=== PATIENT | male | born 1970 | race Caucasian/White ===

== ENCOUNTER 2019-01-11 17:33 | Emergency (ER) | payer OTHER ==
[2019-01-11] MEDS ORDERED: Bacitracin Oint 1 GM U/D Packet TOP ONE (17:58)
--- NOTE | 2019-01-11 17:58 | EDM.PDOC ---
ED HPI GENERAL MEDICAL PROBLEM - General Chief Complaint: Skin Complaint Stated Complaint: FISH HOOK Time Seen by Provider: 01/11/19 17:45 Source of Information: Reports: Patient History Limitations: Reports: No Limitations - History of Present Illness INITIAL COMMENTS - FREE TEXT/NARRATIVE: Patient arrives here with fish hook in left second and third digits, dorsal aspect. DT up to date. Onset: Today, Sudden - Related Data Allergies Allergy/AdvReac Type Severity Reaction Status Date / Time No Known Allergies Allergy Verified 01/11/19 17:51 Past Medical History Cardiovascular History: Reports: Hypertension Social & Family History - Tobacco Use Smoking Status *Q: Unknown Ever Smoked ED ROS GENERAL - Review of Systems Review Of Systems: ROS reveals no pertinent complaints other than HPI. ED EXAM, SKIN/RASH Exam: See Below Exam Limited By: No Limitations General Appearance: Alert, WD/WN, No Apparent Distress Respiratory/Chest: No Respiratory Distress Cardiovascular: Regular Rate, Rhythm Extremities: Normal Inspection Neurological: Alert, Oriented Psychiatric: Normal Affect, Normal Mood Skin: Warm, Dry, Intact, Other (fish hook to second and third digts of left hand , dorsal aspect) Lymphatic: No Adenopathy Course - Vital Signs Last Recorded V/S: Last Vital Signs Temp 36.8 C 01/11/19 17:51 Pulse 90 01/11/19 17:51 Resp 16 01/11/19 17:51 BP 141/91 H 01/11/19 17:51 Pulse Ox 96 01/11/19 17:51 Fish hooks to left 2nd and 3rd digits, removed, patient tolerated well, washed well after removal. Bacitracin and dressing placed. Ibuprofen/Tylenol as needed, wound care discussed, reasons to return discussed, patient agreeable and discharged in stable condition. - Orders/Labs/Meds Orders: Active Orders 24 hr Category Date Time Status Bacitracin [Bacitracin Oint 1 GM] Med 01/11/19 17:58 Once 1 dose TOP ONETIME ONE Medication Orders Bacitracin (Bacitracin Oint 1 Gm) 1 dose TOP ONETIME ONE Stop: 01/11/19 17:59 Meds: Medications Generic Name Dose Route Start Last Admin Trade Name Freq PRN Reason Stop Dose Admin Bacitracin 1 dose 01/11/19 17:58 Bacitracin Oint 1 Gm TOP 01/11/19 17:59 ONETIME ONE Discontinued Medications Generic Name Dose Route Start Last Admin Trade Name Freq PRN Reason Stop Dose Admin Lidocaine HCl 5 ml 01/11/19 17:45 01/11/19 17:57 Xylocaine-Mpf 1% INJECT 01/11/19 17:46 5 ml ONETIME ONE Administration Departure - Departure Time of Disposition: 18:15 Disposition: Home, Self-Care 01 Clinical Impression: Fish hook injury of finger of left hand Qualifiers: Encounter type: initial encounter Qualified Code(s): S69.92XA - Unspecified injury of left wrist, hand and finger(s), initial encounter - Discharge Information Instructions: Hand or Foot Foreign Body, Adult Referrals: PCP,None [Primary Care Provider] - Forms: ED Department Discharge Additional Instructions: Tylenol or Ibuprofen as needed for pain Bacitracin twice daily for 3 days Keep clean and dry as much as possible I hope you have a Happy Birthday the rest of the day!!! - My Orders Last 24 Hours: My Active Orders 01/11/19 17:58 Bacitracin [Bacitracin Oint 1 GM] 1 dose TOP ONETIME ONE - Assessment/Plan Last 24 Hours: My Active Orders 01/11/19 17:58 Bacitracin [Bacitracin Oint 1 GM] 1 dose TOP ONETIME ONE
== END 2019-01-11 18:04 | disposition home or self-care (01) ==
LOC: JP.ED 17:33
DX: S60.451A Superficial foreign body of left index finger, initial encounter (principal); S60.453A Superficial foreign body of left middle finger, initial encounter; I10 Essential (primary) hypertension; W45.8XXA Other foreign body or object entering through skin, initial encounter
CPT/HCPCS: 99282; J2001

== ENCOUNTER 2020-09-05 14:23 | Emergency (ER) | payer OTHER ==
[2020-09-05] MEDS ORDERED: Lidocaine 2% 20 ML MDV SUBCUT ONE (14:47)
[2020-09-05] MEDS ORDERED: Bacitracin Oint 1 GM U/D Packet TOP ONE (14:48)
--- NOTE | 2020-09-05 14:57 | EDM.PDOC ---
ED HPI GENERAL MEDICAL PROBLEM - General Chief Complaint: Upper Extremity Injury/Pain Stated Complaint: CUT RT RING FINGER Time Seen by Provider: 09/05/20 14:45 Source of Information: Reports: Patient, RN. Denies: Old Records History Limitations: Reports: Other (no old records) - History of Present Illness INITIAL COMMENTS - FREE TEXT/NARRATIVE: 50 yo male who has a cabin locally was splitting wood with a wood splitter and accidentally got his R long finger tip in the splitter. Here just over an hour after the accident for eval. His last tetanus was in . Onset: Today, Sudden Onset Date: 09/05/20 Duration: Hour(s): (1+), Constant Location: Reports: Upper Extremity, Right Quality: Reports: Burning Severity: Moderate Improves with: Reports: None Worsens with: Reports: None Context: Reports: Trauma Associated Symptoms: Reports: No Other Symptoms Treatments AGENCY DIRECTOR: Reports: Other (see below) (none) - Related Data Allergies Allergy/AdvReac Type Severity Reaction Status Date / Time No Known Allergies Allergy Verified 09/05/20 14:35 Home Meds: Home Meds Allopurinol [Zyloprim] 1 tab PO DAILY 09/05/20 [History] Indomethacin 1 tab PO DAILY 09/05/20 [History] Lisinopril/Hydrochlorothiazide [Lisinopril-Hctz 20-25 mg Tab] 1 tab PO DAILY 09/05/20 [History] Sildenafil [Revatio] 1 tab PO TID 09/05/20 [History] Past Medical History Cardiovascular History: Reports: Hypertension Social & Family History - Tobacco Use Tobacco Use Status *Q: Never Tobacco User Review of Systems - Review of Systems Review Of Systems: See Below Constitutional: Reports: No Symptoms Musculoskeletal: Reports: Hand Pain (R long finger tip) Skin: Reports: Wound (distal R long finger) Neurological: Reports: No Symptoms ED EXAM, GENERAL - Physical Exam Exam: See Below Exam Limited By: No Limitations General Appearance: Alert, WD/WN, No Apparent Distress Nose: Normal Inspection, No Blood Throat/Mouth: Normal Inspection, Normal Lips, Normal Voice, No Airway Compromise Head: Atraumatic, Normocephalic Neck: Normal Inspection Respiratory/Chest: No Respiratory Distress, Lungs Clear, Normal Breath Sounds, No Accessory Muscle Use Cardiovascular: Regular Rate, Rhythm Extremities: Other (injury R long finger) Neurological: Alert, Oriented, CN II-XII Intact, Normal Cognition, No Motor/Sensory Deficits Skin Exam: Warm, Dry, Normal Color, No Rash, Wound/Incision (laceration/avulsion distal R 3rd finger). No: Intact ED TRAUMA EXTREMITY PROCEDURES - Laceration/Wound Repair Right Distal Ventral Digit - 3rd (Middle) Lac/Wound Length In cm: 1.7 Appearance: Subcutaneous, Mildly Contaminated Distal NVT: No Tendon Injury Anesthetic Type: Digital Local Anesthesia - Lidocaine (Xylocaine): 2% Plain Local Anesthetic Volume: Other (8 ml) Skin Prep: Saline Exploration/Debridement/Repair: Wound Explored Drain Placement: No Sterile Dressing Applied: Nurse Tetanus Status Addressed: Yes Complications: Yes Complication Description: Unable to close wound, appears like mainly an avulsion injury. Will dress and have him follow up on Monday with with either a hand surgeon or a plastic surgeon for possible skin graft. Course - Vital Signs Last Recorded V/S: Last Vital Signs Temp 36.5 C 09/05/20 14:46 Pulse 98 09/05/20 14:46 Resp 14 09/05/20 14:46 BP 131/73 09/05/20 14:46 Pulse Ox 98 09/05/20 14:46 - Orders/Labs/Meds Orders: Active Orders 24 hr Category Date Time Status Fingers Third Digit Rt F7 [CR] Stat Exams 09/05/20 14:48 Taken Meds: Medications Discontinued Medications Generic Name Dose Route Start Last Admin Trade Name Freq PRN Reason Stop Dose Admin Bacitracin 1 dose 09/05/20 14:48 09/05/20 14:52 Bacitracin Oint 1 Gm U/D Packet TOP 09/05/20 14:49 1 dose ONETIME ONE Administration Lidocaine HCl 8 ml 09/05/20 14:47 09/05/20 14:52 Lidocaine 2% 20 Ml Mdv SUBCUT 09/05/20 14:48 8 ml ONETIME ONE Administration - Radiology Interpretation Free Text/Narrative:: R long finger X-ray-neg Departure - Departure Time of Disposition: 15:35 Disposition: Home, Self-Care 01 Condition: Fair Clinical Impression: Soft tissue avulsion - Discharge Information *PRESCRIPTION DRUG MONITORING PROGRAM REVIEWED*: Not Applicable *COPY OF PRESCRIPTION DRUG MONITORING REPORT IN PATIENT ANTONIO: Not Applicable Referrals: PCP,None [Primary Care Provider] - Forms: ED Department Discharge Additional Instructions: Keep wound clean and elevated. Take ibuprofen 600 mg every 6 hrs with food and/or acetaminophen 1000 mg every 6 hrs as needed for pain relief. Call your primary for a referral to a hand surgeon or plastic surgeon on Monday regarding evaluation for possible skin grafting. Sepsis Event Note (ED) - Evaluation Sepsis Screening Result: No Definite Risk - Focused Exam Vital Signs: Vital Signs Temp Pulse Resp BP Pulse Ox 09/05/20 14:46 36.5 C 98 14 131/73 98 - My Orders Last 24 Hours: My Active Orders 09/05/20 14:48 Fingers Third Digit Rt F7 [CR] Stat - Assessment/Plan Last 24 Hours: My Active Orders 09/05/20 14:48 Fingers Third Digit Rt F7 [CR] Stat
--- NOTE | 2020-09-07 09:20 | CR ---
Fingers Third Digit Rt F7 CLINICAL HISTORY: Trauma FINDINGS: There is soft tissue swelling of the third digit. There is a exostosis of the first proximal phalanx. There is some opacity in the soft tissue along the radial and palmar aspect. Foreign bodies are not excluded. IMPRESSION: Soft tissue swelling with possible foreign bodies No fracture Small exostosis distal proximal phalanx
== END 2020-09-05 15:56 | disposition home or self-care (01) ==
LOC: JP.ED 14:23
DX: S61.202A Unspecified open wound of right middle finger without damage to nail, initial encounter (principal); I10 Essential (primary) hypertension; Z79.899 Other long term (current) drug therapy; W45.8XXA Other foreign body or object entering through skin, initial encounter
CPT/HCPCS: 12001; 73140-26-F7; 73140-F7; 96372; 99283-25